=== PATIENT | female | born 1940 | race Caucasian/White ===

== ENCOUNTER 2020-05-03 01:43 | Inpatient (IN) | payer MEDICARE, OTHER ==
[2020-05-03] MEDS ORDERED: HYDROmorphone 1 MG/ML Syringe IVPUSH ONE (02:03)
[2020-05-03] MEDS ORDERED: Sodium Chloride 0.9% 10 ML Syringe FLUSH PRN (02:03)
--- NOTE | 2020-05-03 02:03 | EDM.PDOC ---
ED HPI GENERAL MEDICAL PROBLEM - General Chief Complaint: Abdominal Pain Stated Complaint: ABD PAIN Time Seen by Provider: 05/03/20 01:56 Source of Information: Reports: Patient, Family History Limitations: Reports: No Limitations - History of Present Illness INITIAL COMMENTS - FREE TEXT/NARRATIVE: Patient presents along with her describing severe abdominal pain radiati ng all the way through to the back which began suddenly this evening. 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 She initially received IV chemotherapy and now has been on oral chemotherapy for the preceding 39 days. Over the weekend there was no unusual activity. No difference in food selections. She has never had pain of this intensity before. She is nauseated and has vomited. The pain seems confined to the abdomen and back areas only. Onset: Today, Sudden (2200 hours) Location: Reports: Abdomen, Back Quality: Reports: Sharp, Stabbing Severity: Severe Improves with: Reports: None Worsens with: Reports: Movement Associated Symptoms: Reports: Diaphoresis, Nausea/Vomiting abd Pain Score (Numeric/FACES): 8 - Related Data Allergies Allergy/AdvReac Type Severity Reaction Status Date / Time cephalexin Allergy Syncope Verified 05/03/20 01:51 Home Meds: Home Meds Everolimus [Afinitor] 10 mg PO DAILY 05/03/20 [History] Letrozole 1 tab PO DAILY 05/03/20 [History] ED ROS GENERAL - Review of Systems Review Of Systems: See Below Constitutional: Reports: No Symptoms HEENT: Reports: No Symptoms Respiratory: Reports: No Symptoms Cardiovascular: Reports: No Symptoms GI/Abdominal: Reports: Abdominal Pain, Decreased Appetite, Nausea, Vomiting. Denies: Constipation, Diarrhea : Reports: No Symptoms Musculoskeletal: Reports: No Symptoms Skin: Reports: No Symptoms ED EXAM, GI/ABD - Physical Exam Exam: See Below Text/Narrative:: She holds her lower abdomen with her hand and it and the back are extremely painful to the touch. She can't get comfortable in any position. Exam Limited By: Physical Impairment General Appearance: Severe Distress GI/Abdominal Exam: Tender Back Exam: CVA Tenderness (R), CVA Tenderness (L) Course - Vital Signs Last Recorded V/S: Last Vital Signs Temp 35.3 C L 05/03/20 01:51 Pulse 81 05/03/20 03:22 Resp 17 05/03/20 03:22 BP 153/68 H 05/03/20 03:22 Pulse Ox 98 05/03/20 03:22 - Orders/Labs/Meds Orders: Active Orders 24 hr Category Date Time Status Implanted Port Access [RC] DAILY Care 05/03/20 02:19 Ordered Sodium Chloride 0.9% [Saline Flush] Med 05/03/20 02:03 Active 10 ml FLUSH ASDIRECTED PRN Saline Lock Insert [OM.PC] Routine Oth 05/03/20 02:03 Ordered Medication Orders Sodium Chloride (Saline Flush) 10 ml FLUSH ASDIRECTED PRN PRN Reason: Keep Vein Open Last Admin: 05/03/20 02:20 Dose: 10 ml Documented by: KINJAL Labs: Laboratory Tests 05/03/20 05/03/20 05/03/20 Range/Units 02:00 02:00 02:00 WBC 7.1 (4.5-11.0) K/uL RBC 4.36 (3.30-5.50) M/uL Hgb 12.5 (12.0-15.0) g/dL Hct 39.2 (36.0-48.0) % MCV 90 (80-98) fL MCH 29 (27-31) pg MCHC 32 (32-36) % Plt Count 247 (150-400) K/uL Neut % (Auto) 81 H (36-66) % Lymph % (Auto) 13 L (24-44) % [place] % (Auto) 5 (2-6) % Eos % (Auto) 0 L (2-4) % Baso % (Auto) 0 (0-1) % Sodium 141 (140-148) mmol/L Potassium 3.3 L (3.6-5.2) mmol/L Chloride 103 (100-108) mmol/L Carbon Dioxide 24 (21-32) mmol/L Anion Gap 17.3 H (5.0-14.0) mmol/L BUN 14 (7-18) mg/dL Creatinine 1.1 H (0.6-1.0) mg/dL Est Cr Clr Drug Dosing 36.40 mL/min Estimated GFR (MDRD) 48 L (>60) Glucose 188 H (74-106) mg/dL Lactic Acid 3.0 H (0.4-2.0) mmol/L Calcium 9.0 (8.5-10.1) mg/dL Total Bilirubin 0.3 (0.2-1.0) mg/dL AST 30 (15-37) U/L ALT 27 (12-78) U/L Alkaline Phosphatase 111 (46-116) U/L Total Protein 7.5 (6.4-8.2) g/dL Albumin 3.3 L (3.4-5.0) g/dL Globulin 4.2 H (2.3-3.5) g/dL Albumin/Globulin Ratio 0.8 L (1.2-2.2) Meds: Medications Generic Name Dose Route Start Last Admin Trade Name Freq PRN Reason Stop Dose Admin Sodium Chloride 10 ml 05/03/20 02:03 05/03/20 02:20 Saline Flush FLUSH 10 ml ASDIRECTED PRN Administration Keep Vein Open Discontinued Medications Generic Name Dose Route Start Last Admin Trade Name Freq PRN Reason Stop Dose Admin Hydromorphone HCl 1 mg 05/03/20 02:03 05/03/20 02:13 Dilaudid IVPUSH 05/03/20 02:04 1 mg ONETIME ONE Administration Hydromorphone HCl 0.5 mg 05/03/20 03:31 05/03/20 03:41 Dilaudid IVPUSH 05/03/20 03:32 0.5 mg ONETIME ONE Administration Sodium Chloride 1,000 mls @ 500 mls/hr 05/03/20 02:04 05/03/20 02:18 Normal Saline IV 05/03/20 04:03 500 mls/hr .BOLUS ONE Administration Sodium Chloride 70 mls @ 3 mls/sec 05/03/20 02:43 05/03/20 02:53 Normal Saline IV 05/03/20 02:44 3 mls/sec ASDIRECTED STA Administration Iopamidol 80 ml 05/03/20 02:42 05/03/20 02:53 Isovue-300 (61%) IV 05/03/20 02:43 100 ml . DIRECTED STA Administration Ondansetron HCl 8 mg 05/03/20 02:04 05/03/20 02:11 Zofran IVPUSH 05/03/20 02:05 8 mg ONETIME ONE Administration Ondansetron HCl 4 mg 05/03/20 04:51 Zofran IVPUSH 05/03/20 04:52 ONETIME ONE - Re-Assessments/Exams Free Text/Narrative Re-Assessment/Exam: 05/03/20 02:14 Patient will be given Dilaudid 1 mg and Zofran 8 mg, both as IV doses along with normal saline at 500 mL/h. Once she is more comfortable, will obtain a CT scan of the abdomen/pelvis with contrast. 05/03/20 03:32 Recheck of patient at 0317 hours shows her pain to be substantially improved, at least 50% decreased. No more nausea or retching. I asked her if she felt like she needed any more pain medication and she said "maybe a little." She will be given hydromorphone 0.5 mg IV. She also requested a disc copy of her CT images. 05/03/20 04:[address] scan shows mid to distal small bowel dilation with nearby mesenteric edema. There is a question of small bowel obstruction. Her pain feels like it is increasing somewhat but nausea seems to be returning as well. I will talk with surgery for their recommendations and also give Zofran 4 mg IV. 05/03/20 05:03 I reviewed her case with Dr. Steinberg who will admit her for further evaluation. Departure - Departure Time of Disposition: 05:04 Disposition: Admitted As Inpatient 67 Condition: Good Clinical Impression: Small bowel obstruction Nausea & vomiting Qualifiers: Vomiting type: unspecified Vomiting Intractability: unspecified Qualified Code(s): R11.2 - Nausea with vomiting, unspecified - Discharge Information Referrals: PCP,None [Primary Care Provider] - Forms: ED Department Discharge Sepsis Event Note (ED) - Evaluation Sepsis Screening Result: No Definite Risk - Focused Exam Vital Signs: Vital Signs Temp Pulse Resp BP Pulse Ox 05/03/20 03:22 81 17 153/68 H 98 05/03/20 03:04 84 148/66 H 96 05/03/20 02:42 80 16 147/67 H 96 05/03/20 02:22 66 16 150/67 H 93 L 05/03/20 01:53 73 16 151/54 H 99 05/03/20 01:51 35.3 C L 67 20 157/68 H 98 - My Orders Last 24 Hours: My Active Orders 05/03/20 02:03 Sodium Chloride 0.9% [Saline Flush] 10 ml FLUSH ASDIRECTED PRN Saline Lock Insert [OM.PC] Routine 05/03/20 02:19 Implanted Port Access [RC] DAILY - Assessment/Plan Last 24 Hours: My Active Orders 05/03/20 02:03 Sodium Chloride 0.9% [Saline Flush] 10 ml FLUSH ASDIRECTED PRN Saline Lock Insert [OM.PC] Routine 05/03/20 02:19 Implanted Port Access [RC] DAILY
[2020-05-03] MEDS ORDERED: Sodium Chloride 0.9% 1,000 ML IV ONE (02:04)
[2020-05-03] MEDS ORDERED: Ondansetron 4 MG/2 ML SDV IVPUSH ONE ×2 (02:04→04:51)
[2020-05-03] MEDS ORDERED: Iopamidol 612 MG/ML 100 ML Bottle IV STA (02:42)
[2020-05-03] MEDS ORDERED: HYDROmorphone 0.5 MG/0.5 ML Syringe IVPUSH ONE (03:31)
--- NOTE | 2020-05-03 04:30 | CRLCT ---
INDICATION: Severe abdominal pain. History of metastatic uterine cancer. TECHNIQUE: CT scan of the abdomen and pelvis with 80 cc of Isovue-300 given intravenously. FINDINGS: The lung bases show small faint peripheral ground-glass opacities in the posterior aspect of the right lower lobe. No focal abnormalities identified in the visualized portions of the liver, spleen, pancreas, and adrenal glands. A few very small cysts in both kidneys with the largest located in the lower pole of the right kidney measuring 7 mm. The kidneys are otherwise unremarkable. No hydronephrosis. No obstructing uroliths. Cluster of mildly dilated mid to distal small bowel in the right lower abdomen with adjacent mesenteric edema. The remainder of the GI tract is incompletely distended but shows no gross abnormalities. No retroperitoneal, pelvic sidewall, or mesenteric adenopathy. Atherosclerotic vascular calcifications. Osteopenia. Moderate compression deformity of the L5 vertebral body appears chronic. IMPRESSION: 1. Cluster of mildly dilated mid to distal small bowel in the right lower abdomen with adjacent mesenteric edema. This may represent a focal enteritis but cannot exclude a small bowel obstruction which could represent a closed loop obstruction. Recommend general surgery consultation. 2. Small faint peripheral ground-glass opacities in the posterior aspect of the right lower lobe. This could be due to an infectious process such as COVID. Dictated by Dillan Bunn MD @ 05/03/2020 4:28:18 AM Dictated by: Dillan Bunn MD @ 05/03/2020 04:28:30 (Electronically Signed)
[2020-05-03] MEDS ORDERED: Promethazine 12.5 MG in Sodium Chloride 0.9% 50 ML IV PRN (05:07)
[2020-05-03] MEDS ORDERED: Scopolamine 1.5 MG Transdermal Patch TRDERM PRN (05:15)
[2020-05-03] MEDS ORDERED: diphenhydrAMINE 50 MG/ML SDV IVPUSH PRN (05:16)
[2020-05-03] MEDS ORDERED: diphenhydrAMINE 25 MG Cap PO PRN (05:17)
[2020-05-03] MEDS ORDERED: Promethazine 25 MG in Sodium Chloride 0.9% 50 ML IV PRN (05:20)
[2020-05-03] MEDS ORDERED: Morphine 2 MG/ML SYRINGE IVPUSH PRN (05:21)
[2020-05-03] MEDS ORDERED: fentaNYL 100 MCG/2 ML SDV IVPUSH ONE (05:23)
[2020-05-03] MEDS ORDERED: fentaNYL 100 MCG/2 ML SDV IVPUSH PRN (05:59)
[2020-05-03] MEDS ORDERED: Iopamidol 612 MG/ML 50 ML SDV ONE (05:59)
[2020-05-03] MEDS ORDERED: Iopamidol 612 MG/ML 30 ML SDV PO ONE (06:00)
[2020-05-03] MEDS: Ondansetron 4 MG/2 ML SDV IV PRN (08:26)
--- NOTE | 2020-05-03 08:50 | CRLCT ---
INDICATION: Abdominal pain. TECHNIQUE: CT of the abdomen and pelvis without intravenous contrast. Oral contrast was administered. Coronal and sagittal reconstructions. COMPARISON: CT of the abdomen and pelvis with IV contrast 05/03/2020 at 2:58 a.m. FINDINGS: Small hiatal hernia. Enteric contrast is within the stomach and proximal small bowel with discrete transition point with luminal narrowing in the mid abdomen after which there is no contrast passage (series 2, image 76). Again seen are dilated loops of mid small bowel in the mid and lower abdomen with prominent surrounding mesenteric edema and free fluid. There is a second discrete transition point more distally in the right lower abdomen. The distal small bowel leading up to the ileocecal valve is decompressed. Findings are concerning for a closed loop bowel obstruction. No pneumatosis. No intraperitoneal free air. The colon is normal in caliber. The appendix is not identified. The unenhanced liver, spleen, and pancreas are normal in appearance. Nonspecific thickening of the adrenal glands bilaterally. Excreted contrast within the gallbladder from prior exam. No hydronephrosis. Excreted contrast within the renal collecting systems and bladder. Hysterectomy. Aortoiliac vascular calcifications. No lymphadenopathy. 1.2 cm noncalcified pleural-based pulmonary nodule in the lateral left lower lobe (series 2, image 9). Again seen are patchy opacities in the peripheral right lower lobe which may be infectious or inflammatory. IMPRESSION: 1. Again seen are dilated loops of mid small bowel in the right mid and lower abdomen with prominent surrounding mesenteric edema and free fluid. There are 2 discrete transition points in the mid abdomen and right lower abdomen concerning for closed loop bowel obstruction. Distal small bowel is decompressed. Enteric contrast is within the stomach and proximal small bowel loops with no passage past the first transition point. Recommend surgical consult. 2. 1.2 cm noncalcified pulmonary nodule in the left lower lobe. Consider further evaluation with nonemergent CT of the chest. 3. Patchy opacities in the right lower lobe may be infectious or inflammatory. Please note that all CT scans at this facility use dose modulation, iterative reconstruction, and/or weight-based dosing when appropriate to reduce radiation dose to as low as reasonably achievable. Dictated by Sera Burnett MD @ May 03 2020 8:32AM Signed by Dr. Sera Burnett @ May 03 2020 8:49AM
[2020-05-03] MEDS ORDERED: Ropivacaine 28 ML, dexAMETHasone 8 MG, EPINEPHrine 0.4 MG, Sodium Chloride 0.9% 49.6 ML NERVRT SCH ×4 (10:00)
[2020-05-03] MEDS ORDERED: Potassium Chloride 20 MEQ in Premix Bag 1 BAG IV ONE ×2 (10:00→12:00)
[2020-05-03] MEDS ORDERED: Bupivacaine 0.5%/EPINEPHrine 1:200,000 50 ML MDV ONE (10:48)
[2020-05-03] MEDS ORDERED: Dexamethasone 4 MG/ML SDV ONE (11:12)
[2020-05-03] MEDS ORDERED: Glycopyrrolate 0.2 MG/ML 5 ML MDV ONE (11:12)
[2020-05-03] MEDS ORDERED: Neostigmine Methylsulfate 1 MG/ML 5 ML Syringe ONE (11:12)
[2020-05-03] MEDS ORDERED: Ondansetron 4 MG/2 ML SDV ONE (11:12)
[2020-05-03] MEDS ORDERED: Rocuronium 50 MG/5 ML Vial ONE (11:12)
[2020-05-03] MEDS ORDERED: Propofol 200 MG/20 ML SDV ONE (11:12)
[2020-05-03] MEDS ORDERED: Succinylcholine 200 MG/10 ML MDV ONE (11:12)
[2020-05-03] MEDS ORDERED: Clindamycin Phosphate 900 MG/6 ML SDV ONE (12:24)
[2020-05-03] MEDS ORDERED: Clindamycin Phosphate 900 MG in Sodium Chloride 0.9% 100 ML IV ONE (12:30)
[2020-05-03] MEDS ORDERED: Lactated Ringers 1,000 ML ONE (12:57)
[2020-05-03] MEDS ORDERED: Sugammadex Sodium 200 MG/2 ML VIAL ONE (13:04)
--- NOTE | 2020-05-03 14:21 | CONS ---
DATE OF SERVICE: 05/03/2020 REFERRING PHYSICIAN: CONSULTING PHYSICIAN: Sriram Steinberg MD REASON FOR CONSULTATION: Abdominal pain. HISTORY OF PRESENT ILLNESS: This is a pleasant female who was seen in the emergency room due to severe abdominal pain radiating all the way to her back. This is a new onset. The patient does have a stage IV lung cancer history and is currently on IV chemotherapy. Aside from this, the patient was doing well. She now has some nausea and vomiting. PAST MEDICAL HISTORY: 1. Stage IV lung cancer. 2. Uterine cancer, which she had a hysterectomy for. SOCIAL HISTORY: She is not a current smoker. FAMILY HISTORY: Noncontributory. REVIEW OF SYSTEMS: GENERAL: As expected. CONSTITUTIONAL: Resting fairly comfortably. HEENT: No symptoms. RESPIRATORY: No shortness of breath, although lung cancer as described above. CARDIOVASCULAR: Regular rhythm and rate. GASTROINTESTINAL: Mild to moderate distention. No rebound. No guarding. GENITOURINARY: No symptoms. MUSCULOSKELETAL: No changes. The remainder of review of systems reviewed and is negative. PHYSICAL EXAMINATION: VITAL SIGNS: Temperature 94.5, blood pressure 155/67, pulse 82, respirations 18, 97% on room air. GENERAL: Resting comfortably. HEENT: Pupils are equal. NECK: Supple. LUNGS: Clear. CARDIOVASCULAR: Regular rhythm and rate. RESPIRATORY: Lungs clear to auscultation bilaterally except for poor inspiratory effort on the left. ABDOMEN: Bowel sounds are positive. Mild distention. No rebound or guarding. EXTREMITIES: Full range of motion. Strength 5/5. LABORATORY RESULTS: Show normal CBC. Potassium is slightly low at 3.3, creatinine is 1.1. IMAGING DATA: I did review this, which shows mildly dilated small bowel with some edema. Differential is unknown. ASSESSMENT AND PLAN: The patient will undergo a CT scan with oral contrast to further evaluate this. In addition, the patient most likely be going to surgery, so we discussed risks, benefits, alternatives, and limitations including, but not limited to infection, bleeding. We spent a lot of time discussing the fact that with stage IV lung cancer, she has a high risk of infection, cardiovascular compromise, and even . The patient and family both understood that these are very real risks and may result in serious issues. We also discussed fistulas, possibility of a small bowel resection, and other risks not listed here. The patient understands these risks and wishes to proceed. Sriram Steinberg MD /[id number]
[2020-05-03] MEDS ORDERED: Acetaminophen/oxyCODONE 325-5 MG Tab PO PRN (16:52)
[2020-05-03] MEDS ORDERED: Sodium Chloride 0.9% 250 ML IV SCH (17:00)
[2020-05-03] MEDS: Sodium Chloride 0.9% 1,000 ML IV SCH (19:31)
[2020-05-03] MEDS: Benzocaine/Cetylpyridinium/Menthol Lozenge MUCMEM PRN (19:53)
[2020-05-04] MEDS: Sodium Chloride 0.9% 1,000 ML IV SCH ×2 (03:10→10:52)
[2020-05-04] MEDS: Benzocaine/Cetylpyridinium/Menthol Lozenge MUCMEM PRN (05:23)
--- NOTE | 2020-05-04 09:07 | OR ---
DATE OF PROCEDURE: 05/03/2020 SURGEON: Sriram Steinberg MD PROCEDURE: Transversus abdominis plane blocks bilaterally. COMPLICATION: None. SUPERVISOR UNLOADING: None. RISKS: Risks, benefits, alternatives, and limitations including, but not limited to, infection, bleeding, and injury to abdominal structures were explained to the patient, who wished to proceed. DESCRIPTION OF PROCEDURE: The patient was placed in the supine position. The right transversus plane was identified first. This was accessed using a 21-gauge needle under direct ultrasound guidance. Approximately 80% of the solution was injected in transversus plane. The other side was then performed in same manner, same fashion, same technique in the same sequence, using the same equipment, except for different needle and syringe. Dressings were applied. The patient tolerated the procedure well. Sriram Steinberg MD /[id number]
[2020-05-04] MEDS: Enoxaparin 40 MG/0.4 ML Syringe SUBCUT SCH (10:02)
--- NOTE | 2020-05-04 10:24 | OR ---
DATE OF PROCEDURE: 05/03/2020 SURGEON: Sriram Steinberg MD PROCEDURES: 1. Reduction of internal volvulus (04402). 2. Drainage of peritoneal fluid, right and left abdomen (49023), also cultured. COMPLICATION: None. ELECTROMAGNET CRANE OPERATOR: None. ANESTHETIC: General. PREOPERATIVE DIAGNOSIS: Internal hernia created by a single adhesive band causing nausea, vomiting, and abdominal pain. POSTOPERATIVE DIAGNOSIS: Internal hernia created by a single adhesive band causing nausea, vomiting, and abdominal pain. RISKS: Risks, benefits, alternatives, and limitations, including, but not limited to, infection, bleeding, injury to abdominal structures, requirement for reoperation, hematoma, seroma, sepsis, the risks associated with the fact that the patient has stage IV lung cancer, and other risks not listed here, were explained to the patient, who wished to proceed. PROCEDURE IN DETAIL: The patient was placed in supine position. A small midline abdominal incision was made, approximately 8 cm in size. This was carried down as Kochers were used to elevate the fascia and then was opened sharply into the abdomen. No evidence of enterotomy or injury was noted. The bowel was identified with no acute lymphedema. In the right and left lower quadrants, there were 2 fluid collections. These were creating peritonitis and were irrigated, suctioned, and cultured. The bowel was then ran in a retrograde fashion, and the mid-proximal ileum was noted to be internally herniated through a single adhesive band. This was lysed with electrocautery. No abnormal bleeding was noted after this. Once the bowel was released there was continuous run to the ligament of Treitz and then ran back in an antegrade fashion. No other abnormalities were noted. The bowel appeared viable prior to band lysis, and afterwards, approximately 10 minutes, it was very viable. The bowel was inspected for enterotomy or injury; none was noted. The abdomen was irrigated. The fascia was closed with #1 Vicryl, irrigated, and closed with jessica. The patient tolerated the procedure well. Sriram Steinberg MD /[id number]
--- NOTE | 2020-05-04 10:24 | PN ---
DATE OF SERVICE: 05/04/2020 SUBJECTIVE: The patient is doing very well. All pain is well controlled. No nausea, vomiting, shortness of breath, or chest pain. No GI activity yet. OBJECTIVE: VITAL SIGNS: Stable. Temperature 97, blood pressure 141/55, pulse 74, respirations 20, and 95% on room air. CARDIOVASCULAR: Regular rhythm and rate. RESPIRATORY: Lungs are clear to auscultation bilaterally. SKIN: Dressing is intact. ASSESSMENT: Status post lysis of adhesions. PLAN: We will start her everolimus and letrozole today. We will transfer out of the ICU. We will start her slowly on clear liquid diet. We will add Entereg. We will start Lovenox. Continue incentive spirometry. We will recheck CBC and BMP in the morning and transfer care to Dr. Mcpherson at this time. Sriram Steinberg MD /[id number]
[2020-05-04] MEDS: Ondansetron 4 MG/2 ML SDV IV PRN (12:01)
[2020-05-05] MEDS: Sodium Chloride 0.9% 1,000 ML IV SCH ×3 (00:59→17:13)
[2020-05-05] MEDS: Bisacodyl 5 MG Tab PO SCH ×2 (08:56→20:25)
[2020-05-05] MEDS: EVEROLIMUS 10 MG PO SCH (08:56)
[2020-05-05] MEDS: Docusate Sodium 100 MG Cap PO SCH ×2 (08:57→20:26)
[2020-05-05] MEDS: Enoxaparin 40 MG/0.4 ML Syringe SUBCUT SCH (08:57)
--- NOTE | 2020-05-05 12:28 | PN ---
DATE OF SERVICE: 05/05/2020 SUBJECTIVE: Bobbi is a patient of Sriram Steinberg MD, who is being seen by Mt Mcpherson MD, and myself in his absence. Bobbi has had a total of 1080 in and urine output is 677. She remains to have her Carrillo in for accurate output. She is averaging around 30 mL/hour. She has been up, ambulating. She is not passing any flatus, but states that she has a lot of burping. Pain has been controlled. Vital signs have been stable, temp max of 99 in the past 24 hours. REVIEW OF SYSTEMS: Remainder of review of systems negative for any pertinent positives and negatives. OBJECTIVE: GENERAL: Bobbi Strauss is a pleasant 79-year-old female. She is alert and orientated. VITAL SIGNS: TPR at 0745: 99, 79, 15, blood pressure 138/66, O2 by pulse oximetry is 93% on 1 L of O2. HEENT: Negative. NECK: Supple. HEART: Regular rate and rhythm. LUNGS: Clear. ABDOMEN: Dressings dry and intact. Abdominal binder is on. EXTREMITIES: Without peripheral edema. ASSESSMENT: 1. Reduction of internal volvulus. 2. Drainage of peritoneal fluid, right and left abdomen. POSTOPERATIVE DIAGNOSES: Internal hernia created by single adhesive band causing nausea, vomiting, abdominal pain. Date of surgical procedure, 05/03/2020. Surgeon, Sriram Steinberg MD. PLAN: 1. Colace 100 mg p.o. b.i.d. 2. Dulcolax 10 mg tablet b.i.d. scheduled until patient has bowel movement, then may discontinue. 3. May shower. 4. We will continue use of incentive spirometer. 5. We will evaluate p.r.n. or in a.m. Sera Eaton PA-C /[id number]
[2020-05-06] MEDS: Sodium Chloride 0.9% 1,000 ML IV SCH (01:08)
[2020-05-06] MEDS: Ondansetron 4 MG/2 ML SDV IV PRN (02:44)
[2020-05-06] MEDS: EVEROLIMUS 10 MG PO SCH (08:52)
[2020-05-06] MEDS: Enoxaparin 40 MG/0.4 ML Syringe SUBCUT SCH (08:53)
--- NOTE | 2020-05-06 09:34 | PN ---
DATE OF SERVICE: 05/06/2020 SUBJECTIVE: Bobbi has had 2 firm bowel movements and 1 loose bowel movement. The last bowel movement was associated with 100 mL emesis, which Bobbi states she was not nauseated, she just had an emesis. Vital signs have been stable. Pain controlled on Tylenol. She is up ambulating. Has no other concerns or questions. OBJECTIVE: GENERAL: Bobbi Strauss is a pleasant 79-year-old female. VITAL SIGNS: TPR at 0700, 97.7, 79, 16, blood pressure 130/57. HEENT: Negative. NECK: Supple. HEART: Regular rate and rhythm. LUNGS: Clear. ABDOMEN: Dressings dry and intact. Abdominal binder is on. EXTREMITIES: Without peripheral edema. ASSESSMENT: 1. Reduction of internal volvulus. 2. Drainage of peritoneal fluid, right and left abdomen. POSTOPERATIVE DIAGNOSES: Internal hernia created by single adhesive band causing nausea, vomiting, abdominal pain. Date of surgical procedure, 05/03/2020. Surgeon, Sriram Steinberg MD. PLAN: 1. Discontinue Entereg. 2. Discontinue Colace. 3. Discontinue Dulcolax. 4. Low-residue diet. 5. Continue use of incentive spirometer and ambulation. 6. Plan discharge in a.m. 7. We will evaluate p.r.n. or in a.m. Sera Eaton PA-C /[id number]
[2020-05-07] MEDS: EVEROLIMUS 10 MG PO SCH (08:02)
[2020-05-07] MEDS: Enoxaparin 40 MG/0.4 ML Syringe SUBCUT SCH (08:05)
--- NOTE | 2020-05-07 14:54 | DISCH ---
ADMISSION DIAGNOSES: 1. Severe abdominal pain, nausea, vomiting. 2. History of lung cancer, stage IV. 3. History of uterine cancer. HISTORY: Bobbi Strauss is a pleasant 79-year-old female presented to the emergency department, [facility], with sudden severe onset of abdominal pain, nausea, and vomiting. After preoperative evaluation and discussion of possible risks and possible complications, she wished to proceed with surgical procedure. HOSPITAL COURSE: Surgery was on 05/03/2020. She had no operative complications. On postoperative day #1, her home med of everolimus and letrozole were started. She was started on clear liquid diet and trach was started along with Lovenox. On 05/05/2020, Sriram Steinberg MD, was absent and Mt Mcpherson MD, and myself took over care of patient. She was doing well. She had not had a bowel movement yet. She was up, ambulating. Pain was controlled, started on a bowel stimulation. Carrillo catheter was discontinued. On 05/06/2020, she was having bowel movements. Diet was advanced to a low fiber. She tolerated that well. On 05/07/2020, pain was well managed with Tylenol. Oral intake adequate, output adequate. Able to do her own ADLs with very little assistance, and she is able to be discharged to home without any complications. PHYSICAL EXAMINATION: GENERAL: Bobbi Strauss is a pleasant, 79-year-old female. VITAL SIGNS: Height is 5 feet, 4.17 inches. Weight is 123 pounds. TPR last checked on 05/06/2020 at 2245; 98.8, 72, 16, blood pressure 138/60. HEENT: Negative. NECK: Supple. HEART: Regular rate and rhythm. LUNGS: Clear. ABDOMEN: Aquacel dressings on. This will be replaced prior to discharge. Abdominal binder is on. EXTREMITIES: Without peripheral edema. DISPOSITION: Discharged to home. CONDITION: Stable and improving. FOLLOWUP APPOINTMENT: With Dr. Sriram Steinberg on 05/13/2020 at 12:30 p.m. HOME MEDICATION: Resume prior home medications. DIET: Low residue, low-fiber diet for 2 weeks. Drink 8 to 10 glasses of water a day. DISCHARGE INSTRUCTIONS: Activity: No lifting greater than 10 pounds for 6 weeks. Driving: Do not drive for 1 week while on pain medication. Shower/bathing: May shower. Keep operative site clean and dry. Wound incision care. Wear abdominal binder for 6 weeks if tolerated. Take off Aquacel dressing on 05/10/2020. Notify provider if any fever, increased pain, swelling, redness, drainage, nausea, or vomiting. Special instructions: Use incentive spirometer 10 times every hour while awake for 1 week.
== END 2020-05-07 09:30 | disposition home or self-care (01) | DRG 329 ==
LOC: JP.ED 01:43 → JP.MS 05:07 → JP.ICU 14:00 → JP.MS 05-05 15:30
PROVIDERS: ADMIT Surgery; ATTEND Surgery
PROC: 0DSB0ZZ Reposition Ileum, Open Approach (ICD-10-PCS; principal; 2020-05-03)
PROC: 0W9G0ZX Drainage of Peritoneal Cavity, Open Approach, Diagnostic (ICD-10-PCS; 2020-05-03)
DX: K56.50 Intestinal adhesions [bands], unspecified as to partial versus complete obstruction (principal); K65.9 Peritonitis, unspecified; K56.2 Volvulus; K56.609 Unspecified intestinal obstruction, unspecified as to partial versus complete obstruction; Z20.828 Contact with and (suspected) exposure to other viral communicable diseases; Z85.42 Personal history of malignant neoplasm of other parts of uterus; Z85.118 Personal history of other malignant neoplasm of bronchus and lung; C78.00 Secondary malignant neoplasm of unspecified lung; Z92.21 Personal history of antineoplastic chemotherapy; Z88.1 Allergy status to other antibiotic agents; Z79.899 Other long term (current) drug therapy
CPT/HCPCS: 36415; 74177; 80053; 83605; 85025; 96361; 96374; 96375; 96376; 99285; J1170 ×2; J2405 ×2; J7030; J7050; Q9967; 74176; 80048; 85027; 87070; 87075; 87205; 93005; 93010; A9270-GY; J0171; J0330; J1100; J1642; J1650; J2550; J2704; J2710; J2795; J3480; J3490; J7120; U0002